=== PATIENT | female | born 1985 | race American Indian/Alaskan Native ===

== ENCOUNTER 2018-08-21 09:05 | Inpatient (IN) | payer OTHER ==
[2018-08-21] MEDS ORDERED: BRETHINE SUB-Q PRN (11:16)
[2018-08-21] MEDS ORDERED: XYLOCAINE 2% INFILTRATI ONE (11:16)
[2018-08-21] MEDS ORDERED: SUBLIMAZE IV PRN (11:16)
--- NOTE | 2018-08-21 11:36 | History and Physical Report ---
History of Present Illness Date of examination: 08/21/18 Date of admission: 08/21/2018 Chief complaint: Contractions History of present illness: 33 year old presents to L&D complaining of contractions. Patient reports active movement. Patient denies leaking of fluid or vaginal bleeding. Patient denies headache or visual disturbance. Patient reports swelling. Patient received care at [facility] location and records were able to be accessed. LMP 11/17/17. EDC 08/27/18. significant for the following: AMA (comanaged with [facility]), obesity, history of PIH with 2 previous pregnancies (pt. has been on LDA therapy during this ), borderline elevated BPs at office for past several visits, elevated 1 hour sugar test (passed 3 hour OGTT with one abnormal value), Vitamin D deficiency (supplemented with Vitamin D). Current home medications: Vitamin, Aspirin EC 81 mg daily. labs are as follows: O+, antibody screen negative, rubella immune, hepatitis B surface antigen negative, RPR nonreactive, HIV negative, GC/CT/TV negative, AFP negative, Panorama low risk, 1 hour sugar test 155 (3 hr. OGTT on ly had one abnormal value), pap smear negative, GBS negative. Past History Past Medical History: other (obesity, history of PIH with 2 previous pregnancies) Past Surgical History: other (wisdom teeth extraction, EAB times 1) [facility] History: denies: abnormal PAP smear, chlamydia, gonorrhea, hepatitis B, hepatitis C, herpes, HIV, syphilis, trichomonas Family/Genetic History: hypertension, other (thyroid disease) Social history: , lives with family, full code. denies: smoking, alcohol abuse, prescription drug abuse, IV drug use - Obstetrical History Expected Date of Delivery: 08/27/18 Actual Gestation: 39 Week(s) 1 Day(s) : 5 Para: 3 Hx # Term Pregnancies: 3 Number of Pregnancies: 0 Spontaneous Abortions: 0 Induced : 1 Number of Living Children: 3 Medications and Allergies Allergies Allergy/AdvReac Type Severity Reaction Status Date / Time No Known Allergies Allergy Verified 08/21/18 11:24 Home Medications Medication Instructions Recorded Confirmed Last Taken Type Vit-Fe Fumar-FA [ 1 tab PO QDAY 08/21/18 08/21/18 08/20/18 09:00 History Vitamin] 1 Active Meds: Active Medications Ephedrine Sulfate (Ephedrine Sulfate) 10 mg IV Q2M PRN PRN Reason: Hypotension Fentanyl (Sublimaze) 100 mcg IV Q2H PRN PRN Reason: Labor Pain Oxytocin/Sodium Chloride (Pitocin/Ns 20 Unit/1000ml Drip) 20 units in 1,000 mls @ 125 mls/hr IV DIRECT SUSAN Oxytocin/Sodium Chloride (Pitocin/Ns 30 Unit/500ml) 30 units in 500 mls @ 0 mls/hr IV TITR SUSAN; Protocol Lactated Ringer's (Lactated Ringers) 1,000 mls @ 125 mls/hr IV DIRECT SUSAN Terbutaline Sulfate (Brethine) 0.25 mg SUB-Q ONCE PRN PRN Reason: Hyperstimulation/Hypertonicity Review of Systems All systems: negative (contractions) - Vital Signs Vital signs: Vital Signs Pulse BP 92 H 130/69 08/21/18 09:26 08/21/18 09:26 Temp Pulse Resp BP Pulse Ox 80 18 122/61 96 08/21/18 10:44 08/21/18 10:09 08/21/18 10:44 08/21/18 10:39 LARISSA 7 cm. - Physical Exam Cardiovascular: Regular rate, Normal S1, Normal S2, No murmurs Lungs: Positive: Clear to auscultation Abdomen: Positive: normal appearance, soft. Negative: distention, tenderness, guarding, rigidity Genitourinary (Female): Positive: normal external genitalia, normal perenium. Negative: perineal/vulvar lesions (no lesions seen on careful exam with bright light upon admission) Vagina: Positive: normal moisture Cervix: Positive: other (Cervix 2-3/50/-2/soft) Uterus: Positive: enlarged (size=dates) Anus/Rectum: Positive: normal perianal skin Extremities: Positive: normal, edema (mild edema of hands and feet bilaterally). Negative: tenderness - Obstetrical FHR: category 2 FHR comments: Normal baseline FHR, moderate variability, accelerations present, a few brief variable FHR decelerations with rapid return to baseline, 2 late FHR decelerations which resolved with position change. No repetitive decelerations noted. Uterine Contraction Monitor Mode: External Uterine Contraction Pattern: Irregular Uterine Contraction Intensity: Mild Results Result Diagrams: 08/21/18 11:47 All other labs normal. Assessment and Plan A: at 39 weeks, 1 day gestation. Borderline LARISSA. Obesity. History of PIH with 2 previous pregnancies; BPs in prehypertension range in office, edema. GBS negative. Early labor. Category 2 heart rate tracing for a brief period of time; now Category 1 FHR tracing. P: Admit. Continuous EFM. BP monitoring. Preeclamptic labs. Augmentation of labor with Pitocin. Discussed with patient risks and benefits of Pitocin augmentation of labor. Patient consented to Pitocin augmentation of labor. Informed Dr. Levi re: patient and that Pitocin augmentation of labor planned.
[2018-08-21] MEDS ORDERED: PITOCin/NS 30 UNIT/500ML 30 UNITS/500 ML BAG IV SCH (12:00)
[2018-08-21] MEDS ORDERED: LACTATED RINGERS 1,000 ML IV SCH (12:00)
[2018-08-21] MEDS ORDERED: PITOCin/NS 20 UNIT/1000ML DRIP 20 UNITS/1,000 ML BAG IV SCH (12:00)
[2018-08-21 12:17] LABS: Hematocrit 36.6 % (30.3-42.9); Hemoglobin 12.6 gm/dl (10.1-14.3); Mean Corpuscular HGB Conc 34 % (30-34); Mean Corpuscular Volume 95 fl (79-97); Platelet Count 206 K/mm3 (140-440); Red Blood Count 3.87 M/mm3 (3.65-5.03); Red Cell Distribution Width 14.6 % (13.2-15.2)
--- NOTE | 2018-08-21 12:51 | Ultrasound Report ---
PROCEDURE: US OB LIMITED TECHNIQUE: Limited obstetric ultrasound was performed to evaluate for amniotic fluid index. HISTORY: LARISSA COMPARISONS: None. FINDINGS: There is a single live intrauterine in cephalic presentation. The amniotic fluid index is 7 cm, which is in the lower limits of normal. heart rate is 121 bpm. IMPRESSION: Amniotic fluid index is 7 cm, which is in the lower limits of normal. This document is electronically signed by Priya Sher MD., August 21 2018 12:48:20 PM ET
[2018-08-21 15:51] LABS: Alanine Aminotransferase 7 units/L (7-56); Albumin 2.4 g/dL (3.9-5); BUN/Creatinine Ratio 20; Blood Urea Nitrogen 6 mg/dL (7-17); Calcium 7.6 mg/dL (8.4-10.2); Hemolysis Index 10; Uric Acid 2.4 mg/dL (3.5-7.6)
--- NOTE | 2018-08-21 16:43 | Event Note ---
Date: 08/21/18 E 3--2.
[2018-08-21 16:55] LABS: Bilirubin,Urine NEG (Negative); Blood,Urine NEG (Negative); Color,Urine Yellow (Yellow); Mucus,Urine FEW /HPF; Protein,Urine <15 mg/dL mg/dL (Negative); Urobilinogen,Urine < 2.0 mg/dL (<2.0); WBC,Urine < 1.0 /HPF (0.0-6.0)
[2018-08-21] MEDS ORDERED: NARCAN 2 MG/2 ML IV PRN (19:13)
--- NOTE | 2018-08-21 19:15 | Anesthesia Consultation ---
Anesthesia Consult and Med Hx - Airway Anesthetic Teeth Evaluation: Good ROM Head & Neck: Adequate Mental/Hyoid Distance: Adequate Mallampati Class: Class I Intubation Access Assessment: Good - Pulmonary Exam CTA: Yes - Cardiac Exam Cardiac Exam: RRR - Pre-Operative Health Status ASA Pre-Surgery Classification: ASA2 Proposed Anesthetic Plan: Epidural - Pulmonary Hx Asthma: No - Cardiovascular System Hx Hypertension: No - Central Nervous System Hx Seizures: No Hx Psychiatric Problems: No - Endocrine Hx Renal Disease: No Hx Hypothyroidism: No Hx Hyperthyroidism: No - Hematic Hx Anemia: No Hx Sickle Cell Disease: No
--- NOTE | 2018-08-21 19:16 | Anesthesia Day of Surgery ---
Anesthesia Day of Surgery - Day of Surgery Patient Examined: Yes Patient H&P Reviewed: Yes Patient is NPO: Yes Beta Blockers: No Cardiac Clearance: No Pulmonary Clearance: No Wes's Test: N/A
[2018-08-21] MEDS ORDERED: MARCAINE 0.25% INFILTRATI ONE (19:19)
[2018-08-21] MEDS ORDERED: STADOL IV ONE (20:00)
[2018-08-21] MEDS ORDERED: fentaNYL-BUPIV 2 MCG/ML-0.125% 200 MCG/100 ML BAG EPIDURAL SCH (20:00)
[2018-08-21] MEDS ORDERED: STADOL ONE (20:13)
[2018-08-21] MEDS ORDERED: METHERGINE IM ONE (20:13)
[2018-08-21] MEDS ORDERED: NORCO 5/325 PO PRN (20:29)
[2018-08-21] MEDS ORDERED: TUCKS PAD TP PRN (20:29)
[2018-08-21] MEDS ORDERED: LANSINOH TP PRN (20:29)
[2018-08-21] MEDS ORDERED: MILK OF MAGNESIA PO PRN (20:29)
--- NOTE | 2018-08-21 20:36 | Procedure Note ---
OB Delivery Note - Delivery Date of Delivery: 08/21/18 Surgeon: TUCKER MATIAS Estimated blood loss: 300cc - Vaginal Delivery presentation: vertex Delivery position: OA Intrapartum events: none Delivery induction: oxytocin Delivery augmentation: rupture of membranes Delivery monitor: external FHT, external uterine, internal FHT Route of delivery: Delivery placenta: spontaneous Delivery cord: 3 umbilical vessels, other (short cord) Episiotomy: none Delivery laceration: none Anesthesia: none Delivery comments: Spontaneous vaginal delivery at 19:37 of liveborn female infant weighing 6 lb. 15 oz. over intact perineum with apgars of 8/9. Short cord noted at delivery. Baby cried spontaneously and vigorously immediately after . Bulb suctioned and dried. Baby placed immediately skin to skin with mom after . 3 vessel cord double clamped and cut. Spontaneous delivery of intact placenta and membranes at 20:18 by Boyer mechanism. EBL 300 cc. Pitocin to IV fluids after delivery of placenta. Fundus firm and midline. Vaginal sweep negative. Sponge count correct. Cord blood obtained. Mother and baby stable in birthing room. Placenta to path.
[2018-08-21] MEDS ORDERED: SODIUM CHLORIDE FLUSH SYRINGE 10 ML IV PRN (21:00)
[2018-08-22] MEDS: IBUPROFEN PO SCH ×4 (02:17→22:27)
[2018-08-22 05:25] LABS: Hematocrit 34.5 % (30.3-42.9); Hemoglobin 11.6 gm/dl (10.1-14.3)
--- NOTE | 2018-08-22 10:06 | Progress Note ---
Assessment and Plan - Patient Problems (1) Status post normal vaginal delivery Current Visit: Yes Status: Acute Plan to address problem: PPD 1 - stable Continue routine orders Discharge to home 08/23/18 Follow-up at [facility] as needed or in 6 weeks for exam Subjective - Subjective Date of service: 08/22/18 Principal diagnosis: PPD #1; s/p Interval history: see H&P, Event Note, and OB Delivery Procedure Note Patient reports: appetite normal, voiding normally, pain well controlled, ambulating normally, no dizzy ambulation : doing well, other (breast and bottle feeding) Objective - Vital Signs Latest vital signs: Vital Signs Temp Pulse Resp BP Pulse Ox 08/22/18 07:54 16 08/22/18 04:40 98.2 F 94 H 18 112/59 96 08/21/18 21:39 98.9 F 82 20 129/74 97 08/21/18 20:38 100 H 139/61 08/21/18 20:23 90 143/67 08/21/18 20:15 88 136/65 08/21/18 20:08 107 H 127/80 08/21/18 19:45 97.8 F 08/21/18 19:43 97 H 94 08/21/18 19:40 98 H 146/66 08/21/18 19:22 90 96 08/21/18 19:17 103 H 97 08/21/18 18:47 91 H 97 08/21/18 18:43 99 H 94 08/21/18 18:42 89 95 08/21/18 18:37 100 H 96 08/21/18 18:35 88 143/64 94 08/21/18 18:34 96.8 F L 08/21/18 18:32 113 H 86 08/21/18 18:30 108 H 78 L 08/21/18 18:27 113 H 96 08/21/18 18:23 111 H 94 08/21/18 18:22 108 H 94 08/21/18 18:17 95 H 96 08/21/18 18:12 100 H 139/65 95 08/21/18 18:11 91 H 92 08/21/18 18:07 89 97 08/21/18 18:06 93 H 202/95 08/21/18 18:01 87 97 08/21/18 17:56 93 H 98 06/23/19 17:51 101 H 98 08/21/18 17:46 97 H 99 08/21/18 17:41 103 H 96 08/21/18 17:36 87 122/61 98 06 17:31 83 97 08/21/18 17:26 83 97 08/21/18 17:21 91 H 97 08/21/18 17:16 83 98 08/21/18 17:11 85 97 08/21/18 17:06 83 97 08/21/18 17:05 83 138/66 08/21/18 17:01 85 97 08/21/18 16:56 79 97 08/21/18 16:51 82 97 08/21/18 16:46 84 97 08/21/18 16:41 81 96 08/21/18 16:36 78 98 08/21/18 16:34 75 136/64 08/21/18 16:31 84 99 08/21/18 16:26 86 96 08/21/18 16:21 74 98 08/21/18 16:18 78 134/62 06 16:01 81 98 08/21/18 15:56 88 96 08/21/18 15:51 75 96 08/21/18 15:46 77 97 08/21/18 15:41 80 97 08/21/18 15:36 78 97 08/21/18 15:31 79 99 08/21/18 15:26 82 97 08/21/18 15:21 83 97 08/21/18 15:16 81 97 08/21/18 15:11 82 98 08/21/18 15:06 77 98 08/21/18 15:04 89 140/81 06 15:01 86 98 08/21/18 14:56 85 98 08/21/18 14:51 90 96 08/21/18 14:46 81 97 08/21/18 14:41 79 97 08/21/18 14:36 83 98 08/21/18 14:35 77 135/70 06 14:31 82 99 08/21/18 14:26 75 97 08/21/18 14:21 79 98 08/21/18 14:16 81 98 08/21/18 14:11 82 99 08/21/18 14:06 82 99 0619 14:01 86 98 08/21/18 13:56 84 98 08/21/18 13:51 80 98 08/21/18 13:46 78 98 08/21/18 13:41 72 99 08/21/18 13:36 80 119/64 98 08/21/18 13:31 76 97 08/21/18 13:26 71 98 08/21/18 13:21 81 97 08/21/18 13:16 78 98 08/21/18 13:11 89 96 08/21/18 13:07 82 145/64 08/21/18 13:06 81 100 08/21/18 13:01 85 97 08/21/18 12:56 80 96 08/21/18 12:53 78 94 08/21/18 12:51 85 96 08/21/18 12:46 79 96 08/21/18 12:41 81 96 08/21/18 12:36 76 96 08/21/18 12:34 79 132/66 93 08/21/18 12:31 73 96 08/21/18 12:26 76 97 08/21/18 12:21 88 97 08/21/18 12:16 74 97 08/21/18 12:11 89 97 08/21/18 12:06 87 98 08/21/18 12:03 97.0 F L 08/21/18 11:56 85 132/65 08/21/18 10:44 80 122/61 08/21/18 10:39 72 96 08/21/18 10:37 82 93 08/21/18 10:34 79 96 08/21/18 10:31 74 92 08/21/18 10:29 81 96 08/21/18 10:24 90 96 08/21/18 10:19 88 96 08/21/18 10:14 79 97 08/21/18 10:09 92 H 18 Intake and Output 08/21/18 08/22/18 08/22/18 23:59 07:59 15:59 Intake Total 240 Output Total 900 Balance -660 Intake: Oral 240 Output: Urine 900 Void 900 Other: Total, Intake Amount 240 Total, Output Amount 900 # Voids Void 1 2 Estimated Blood Loss 300 - Exam Cardiovascular: Present: Regular rate Lungs: Present: Clear to auscultation Abdomen: Present: normal appearance, soft Vulva: both: normal Uterus: Present: normal, firm, fundal height at umbilicus Extremities: Present: normal Comments: small lochia - Labs Labs: Abnormal lab results 08/21/18 08/21/18 Range/Units 11:47 11:47 MCH 33 H (28-32) pg Sodium 133 L (137-145) mmol/L Carbon Dioxide 16 L (22-30) mmol/L BUN 6 L (7-17) mg/dL Creatinine 0.3 L (0.7-1.2) mg/dL Glucose 64 L (65-100) mg/dL Uric Acid 2.4 L (3.5-7.6) mg/dL Calcium 7.6 L (8.4-10.2) mg/dL Total Protein 5.0 L (6.3-8.2) g/dL Albumin 2.4 L (3.9-5) g/dL
--- NOTE | 2018-08-22 10:08 | Discharge Summary ---
Providers - Providers Date of Admission: 08/21/18 11:40 Date of discharge: 08/23/18 Attending physician: ATUL CAMPOS MD Primary care physician: HAILY MARTIN Hospitalization Reason for admission: active labor, IUP at term Delivery: Episiotomy: none Laceration: none Other procedures: none complications: none Discharge diagnosis: IUP at term delivered [place] baby: female Hospital course: Uncomplicated Condition at discharge: Stable Disposition: DC-01 TO HOME OR SELFCARE - Discharge Diagnoses (1) Status post normal vaginal delivery Status: Acute Plan - Provider Discharge Summary Activity: routine, no sex for 6 weeks, no heavy lifting 4 weeks, no strenuous exercise Diet: routine Instructions: routine Additional instructions: [] Smoking cessation referral if applicable(refer to patient education folder for contact #) [] Refer to [facility]'s [facility] Booklet Call your doctor immediately for: * Fever > 100.5 * Heavy vaginal bleeding ( >1 pad per hour) * Severe persistent headache * Shortness of breath * Reddened, hot, painful area to leg or breast * Drainage or odor from incision. * Keep incision clean and dry at all times and follow doctor's instructions regarding bathing/showering - Follow up plan Follow up: HAILY MARTIN MD [Primary Care Provider] - 6 Weeks (Follow-up at [facility] as needed or in 6 weeks for exam)
[2018-08-23] MEDS: IBUPROFEN PO SCH (05:36)
[2018-08-23 08:28] VITALS: BP 121/51
== END 2018-08-23 11:00 | disposition home or self-care (01) | DRG 775 ==
LOC: TRG 09:05 → LD 11:40 → OB 20:52
PROVIDERS: ADMIT Obstetrics & Gynecology; ATTEND Obstetrics & Gynecology
PROC: 10E0XZZ Delivery of Products of Conception, External Approach (ICD-10-PCS; principal; 2018-08-21)
PROC: 3E033VJ Introduction of Other Hormone into Peripheral Vein, Percutaneous Approach (ICD-10-PCS; 2018-08-21)
DX: O69.3XX0 Labor and delivery complicated by short cord, not applicable or unspecified (principal); Z3A.39 39 weeks gestation of pregnancy; Z37.0 Single live birth; O99.214 Obesity complicating childbirth; E66.9 Obesity, unspecified; Z82.49 Family history of ischemic heart disease and other diseases of the circulatory system
CPT/HCPCS: 36415; 59025; 76815; 80053; 81001; 83615; 84550; 85014; 85018; 85027; 86592; 86850; 86900; 86901; 88307; G0378; J0595; J2210; J2590; J3010; J7120